=== PATIENT | female | born 1940 | race Caucasian/White ===

== ENCOUNTER 2017-09-18 12:54 | Emergency (ER) | payer MEDICARE ==
[~2017-09-18] VITALS: Ht 165.1 cm; Wt 62.1 kg
--- NOTE | 2017-09-18 13:14 | ER Report ---
History and Physical Time Seen By MD: 13:10 HPI/DOMINICK CHIEF COMPLAINT: Stroke symptoms HISTORY OF PRESENT ILLNESS: This is a 76-year-old female who presents to the emergency department for strokelike symptoms. Patient was sent from urgent care today due to her severe ataxia. Patient states that since July she has had intermittent episodes of "vertigo" with ataxia, no medications for her symptoms. But yesterday and today her ataxia became worse. She did go to urgent care for some meclizine when she was evaluated there she was promptly sent to the emergency department for further evaluation. Patient denies dizziness, nausea, vomiting, aches, chills, denies headaches, diarrhea. She also states her sleep has been off since coming back from [place] at the end of July , in addition to her ataxia. REVIEW OF SYSTEMS: Constitutional: No fever, no chills. Eyes: No discharge. ENT: No sore throat. Cardiovascular: No chest pain, no palpitations. Respiratory: No cough, no shortness of breath. Gastrointestinal: No abdominal pain, no vomiting. Genitourinary: No hematuria. Musculoskeletal: No back pain. Skin: No rashes. Neurological: As above. Allergies: Coded Allergies: No Known Drug Allergies (Unverified , 09/18/17) Home Meds Active Scripts Meclizine Hcl (MECLIZINE HCL) 25 Mg Tablet, 25 MG PO BID for 5 Days, #30 TAB Prov:TUCKER RAPP Fran [facility]- 09/18/17 Past Medical/Surgical History The patient has a past medical and surgical history of hysterectomy, vertigo. Reviewed Nurses Notes: Yes Constitutional Vital Sign - Last 24 Hours 09/18/17 09/18/17 09/18/17 09/18/17 13:09 13:09 13:10 13:24 Temp 97.7 Pulse 66 ??? 71 Resp 16 15 B/P (MAP) 194/95 194/95 (128) Pulse Ox 91 92 O2 Delivery Room Air 09/18/17 09/18/17 09/18/17 09/18/17 13:30 13:39 13:52 13:54 Pulse 71 ??? Resp 8 27 B/P (MAP) 190/105 (133) 190/78 (115) Pulse Ox 94 09/18/17 09/18/17 09/18/17 09/18/17 13:59 14:00 14:29 14:30 Pulse ??? 71 Resp 6 B/P (MAP) 178/90 (119) 157/87 (110) Pulse Ox 96 09/18/17 09/18/17 09/18/17 09/18/17 14:44 15:00 15:30 16:00 Pulse 71 Resp 18 B/P (MAP) ???/??? (1665) ???/??? (1665) ???/??? (1665) Pulse Ox 93 09/18/17 09/18/17 16:56 17:13 B/P (MAP) 167/104 (125) 186/91 (122) Physical Exam General Appearance: The patient is alert, has no immediate need for airway protection and no signs of toxicity. Eyes: Pupils equal and round no pallor or injection. EOMs intact. No nystagmus. ENT, Mouth: Mucous membranes are moist. Respiratory: There are no retractions, lungs are clear to auscultation. Cardiovascular: Regular rate and rhythm, no murmurs, clicks or rubs. Gastrointestinal: Abdomen is soft and non tender, no masses, bowel sounds normal. Neurological: Alert and oriented 4. Moving all extremities. Following all commands. No focal neuro deficits. Cranial nerves II through XII intact and equal. Moderate swaying to the right with Romberg exam. Negative nystagmus, negative vertical skew, negative head impulse. Ataxia with ambulation primarily to the right. Skin: Warm and dry, no rashes. Musculoskeletal: Neck is supple non tender. Extremities are nontender, nonswollen and have full range of motion. DIFFERENTIAL DIAGNOSIS: After history and physical exam differential diagnosis was considered for vertigo including but not limited to peripheral causes such as benign positional vertigo, Mnire's disease, viral labyrinthitis and central causes such as CVA, and tumor. NIH Stroke Scale: 0 Level of consciousness: Alert Answers both questions correctly Performs both tasks correctly Best Gaze:0 Normal Visual:0 No visual loss Facial Palsy:0 Normal, symmetrical movements Motor Left Arm:0 No drift for 10 seconds Motor Right Arm:0 No drift for 10 seconds Motor Left Le No drift for 5 seconds Motor Right Le No drift for 5 seconds Limb Ataxia:0 Absent Sensory: 0 Normal, no sensory loss Best Language:0 Normal, no aphasia Dysarthria:0 Normal Extinction and Inattention:0 No abnormality Medical Decision Making Data Points Result Diagram: 09/18/17 1402 09/18/17 1402 Laboratory Hematology Test 09/18/17 13:50 09/18/17 14:02 Urine Color Yellow Urine Clarity Clear Urine pH 5.0 pH (4.8-9.5) Urine Specific [place] 1.013 Urine Protein Negative mg/dL (NEGATIVE) Urine Glucose (UA) Negative mg/dL (NEGATIVE) Urine Ketones Negative mg/dL (NEGATIVE) Urine Blood Moderate (NEGATIVE) Urine Nitrite Positive (NEGATIVE) Urine Bilirubin Negative (NEGATIVE) Urine Urobilinogen Negative mg/dL (0.2-1.9) Urine Leukocyte Esterase Negative (NEGATIVE) Urine RBC 5 /HPF (0-2/HPF) Urine WBC 10 /HPF (0-5/HPF) Urine Squamous Epithelial Cells Many /LPF (</=FEW) Urine Bacteria Moderate /HPF (NONE-FEW) Urine Hyaline Casts Few /LPF (NONE-FEW) Urine Mucus None /HPF (NONE-FEW) Red Blood Count 5.34 M/uL (4.17-5.56) Mean Corpuscular Volume 88.8 fL (80.0-96.0) Mean Corpuscular Hemoglobin 30.6 pg (26.0-33.0) Mean Corpuscular Hemoglobin Concent 34.4 g/dL (32.0-36.0) Red Cell Distribution Width 12.9 % (11.5-14.5) Mean Platelet Volume 7.3 fL (7.2-11.1) Neutrophils (%) (Auto) 59.5 % (39.4-72.5) Lymphocytes (%) (Auto) 31.5 % (17.6-49.6) Monocytes (%) (Auto) 7.7 % (4.1-12.4) Eosinophils (%) (Auto) 0.6 % (0.4-6.7) Basophils (%) (Auto) 0.7 % (0.3-1.4) Nucleated RBC Relative Count (auto) 0.1 /100WBC Neutrophils # (Auto) 4.9 K/uL (2.0-7.4) Lymphocytes # (Auto) 2.6 K/uL (1.3-3.6) Monocytes # (Auto) 0.6 K/uL (0.3-1.0) Eosinophils # (Auto) 0.1 K/uL (0.0-0.5) Basophils # (Auto) 0.1 K/uL (0.0-0.1) Nucleated RBC Absolute Count (auto) 0.01 K/uL Prothrombin Time 12.7 seconds (12.0-14.4) Prothromb Time International Ratio 0.96 Activated Partial Thromboplast Time 27 seconds (23-35) Sodium Level 138 mmol/L (137-145) Potassium Level 4.4 mmol/L (3.5-5.0) Chloride Level 102 mmol/L (98-107) Carbon Dioxide Level 25 mmol/L (22-31) Blood Urea Nitrogen 19 mg/dl (7-18) Creatinine 0.70 mg/dl (0.52-1.04) Glomerular Filtration Rate Calc > 60.0 Random Glucose 91 mg/dl (75-110) Calcium Level 9.7 mg/dl (8.4-10.2) Total Bilirubin 0.6 mg/dl (0.2-1.3) Aspartate Amino Transf (AST/SGOT) 33 U/L (0-35) Alanine Aminotransferase (ALT/SGPT) 48 U/L (0-56) Alkaline Phosphatase 51 U/L (0-126) Troponin I < 0.012 ng/ml Total Protein 8.2 gm/dl (6.3-8.2) Albumin 4.4 g/dl (3.5-5.0) Chemistry Test 09/18/17 13:50 09/18/17 14:02 Urine Color Yellow Urine Clarity Clear Urine pH 5.0 pH (4.8-9.5) Urine Specific [place] 1.013 Urine Protein Negative mg/dL (NEGATIVE) Urine Glucose (UA) Negative mg/dL (NEGATIVE) Urine Ketones Negative mg/dL (NEGATIVE) Urine Blood Moderate (NEGATIVE) Urine Nitrite Positive (NEGATIVE) Urine Bilirubin Negative (NEGATIVE) Urine Urobilinogen Negative mg/dL (0.2-1.9) Urine Leukocyte Esterase Negative (NEGATIVE) Urine RBC 5 /HPF (0-2/HPF) Urine WBC 10 /HPF (0-5/HPF) Urine Squamous Epithelial Cells Many /LPF (</=FEW) Urine Bacteria Moderate /HPF (NONE-FEW) Urine Hyaline Casts Few /LPF (NONE-FEW) Urine Mucus None /HPF (NONE-FEW) White Blood Count 8.3 k/uL (4.5-11.0) Red Blood Count 5.34 M/uL (4.17-5.56) Hemoglobin 16.3 g/dL (12.0-16.0) Hematocrit 47.4 % (34.0-47.0) Mean Corpuscular Volume 88.8 fL (80.0-96.0) Mean Corpuscular Hemoglobin 30.6 pg (26.0-33.0) Mean Corpuscular Hemoglobin Concent 34.4 g/dL (32.0-36.0) Red Cell Distribution Width 12.9 % (11.5-14.5) Platelet Count 278 K/uL (150-450) Mean Platelet Volume 7.3 fL (7.2-11.1) Neutrophils (%) (Auto) 59.5 % (39.4-72.5) Lymphocytes (%) (Auto) 31.5 % (17.6-49.6) Monocytes (%) (Auto) 7.7 % (4.1-12.4) Eosinophils (%) (Auto) 0.6 % (0.4-6.7) Basophils (%) (Auto) 0.7 % (0.3-1.4) Nucleated RBC Relative Count (auto) 0.1 /100WBC Neutrophils # (Auto) 4.9 K/uL (2.0-7.4) Lymphocytes # (Auto) 2.6 K/uL (1.3-3.6) Monocytes # (Auto) 0.6 K/uL (0.3-1.0) Eosinophils # (Auto) 0.1 K/uL (0.0-0.5) Basophils # (Auto) 0.1 K/uL (0.0-0.1) Nucleated RBC Absolute Count (auto) 0.01 K/uL Prothrombin Time 12.7 seconds (12.0-14.4) Prothromb Time International Ratio 0.96 Activated Partial Thromboplast Time 27 seconds (23-35) Glomerular Filtration Rate Calc > 60.0 Calcium Level 9.7 mg/dl (8.4-10.2) Total Bilirubin 0.6 mg/dl (0.2-1.3) Aspartate Amino Transf (AST/SGOT) 33 U/L (0-35) Alanine Aminotransferase (ALT/SGPT) 48 U/L (0-56) Alkaline Phosphatase 51 U/L (0-126) Troponin I < 0.012 ng/ml Total Protein 8.2 gm/dl (6.3-8.2) Albumin 4.4 g/dl (3.5-5.0) Coagulation Test 09/18/17 14:02 Prothrombin Time 12.7 seconds Prothromb Time International Ratio 0.96 Activated Partial Thromboplast Time 27 seconds Urinalysis Test 09/18/17 13:50 Urine Color Yellow Urine Clarity Clear Urine pH 5.0 pH (4.8-9.5) Urine Specific [place] 1.013 Urine Protein Negative mg/dL (NEGATIVE) Urine Glucose (UA) Negative mg/dL (NEGATIVE) Urine Ketones Negative mg/dL (NEGATIVE) Urine Blood Moderate (NEGATIVE) Urine Nitrite Positive (NEGATIVE) Urine Bilirubin Negative (NEGATIVE) Urine Urobilinogen Negative mg/dL (0.2-1.9) Urine Leukocyte Esterase Negative (NEGATIVE) Urine RBC 5 /HPF (0-2/HPF) Urine WBC 10 /HPF (0-5/HPF) Urine Squamous Epithelial Cells Many /LPF (</=FEW) Urine Bacteria Moderate /HPF (NONE-FEW) Urine Hyaline Casts Few /LPF (NONE-FEW) Urine Mucus None /HPF (NONE-FEW) EKG/Imaging EKG Interpretation 12 lead EKG: Rhythm: Normal sinus rhythm, 66 bpm. [place]: normal QRS: normal ST segments: normal Imaging Exam type: CHEST PA AND LAT History: Stroke symptoms, vertigo, Comparison: None Findings: The lungs are free of acute effusions, infiltrates or edema. There is an increased AP diameter the chest which can be seen with COPD. The cardiac silhouette is normal in size. A small hiatal hernia. Mild spondylotic changes of the thoracic spine. IMPRESSION: 1. Mild hyperinflation lung ochoa although no evidence of acute pulmonary consolidation Small hiatal hernia Report Dictated By: Christelle Blecher MD at 09/18/2017 2:28 PM Report E-Signed By: Christelle Belcher MD at 09/18/2017 2:30 PM WSN:[email or web address] EXAMINATION: Head CT without intravenous contrast HISTORY: Stroke symptoms TECHNIQUE: Contiguous axial images were obtained from the skull base to the vertex without intravenous contrast. Sagittal and coronal reformatted images are also submitted. COMPARISON: None. FINDINGS: Brain volume: Normal. Ventricles: Normal. Acute ischemic changes: There are diffuse areas of decreased attenuation seen throughout the periventricular white matter. Decreased attenuation also noted in the suha and cerebral peduncles. There is no associated mass effect. Hemorrhage: None. Masses / edema: None. Roblero-white: Negative. White matter: As above Vessels: Negative. Extra-axial: Negative. Calvarium / scalp: Negative. Skull base / visualized face: Negative. Visualized sinuses / orbits: There is a large mucous retention cyst or other polypoid lesion in the left maxillary sinus IMPRESSION: There are diffuse areas of decreased attenuation throughout the periventricular white matter and decreased attenuation in the suha and cerebral peduncles. There is no associated mass effect. This could represent chronic change although there are no prior studies available for comparison. In light of the clinical history MR the brain is recommended for further evaluation Results were called to TUCKER RAPP at 09/18/2017 2:23 PM. Report Dictated By: Christelle Belcher MD at 09/18/2017 2:18 PM Report E-Signed By: Christelle Belcher MD at 09/18/2017 2:23 PM WSN:[email or web address] Examination: MR brain without and with contrast History: Evaluate for stroke, ataxia Comparison: Head CT same day Technique: Multiplane MR imaging was performed through the brain without and with contrast. 13 cc IV multihance was administered. Findings: Diffusion: None Ventricles: Normal Midline shift: None Extraxial fluid: None Midline craniocervical structures: Normal Parenchyma: Confluent periventricular and deep white matter high signal most pronounced in the right parietal region. A few scattered white matter high signal foci. Enhancement: No pathologic enhancement Vascular flow voids: Normal Orbits and paranasal sinuses: Cataract postsurgical change. Left maxillary sinus mucous retention cyst. Impression: 1. No acute finding. 2. Mild to moderate chronic small vessel ischemic change. 3. Otherwise normal brain MR without and with contrast. Report Dictated By: Maikol Gautam MD at 09/18/2017 4:49 PM Report E-Signed By: Maikol Gautam MD at 09/18/2017 4:53 PM WSN:[id number] EXAMINATION: Brain MR angiogram HISTORY: Ataxia COMPARISON: None. TECHNIQUE: [id number]-[id number]-flight angiography was performed through the brain with 3D reformations. FINDINGS: Internal carotids: Normal. Anterior/Posterior communicating arteries: Normal. Anterior cerebral arteries: Normal. Middle cerebral arteries: Normal. Posterior cerebral arteries: Normal. Vertebrobasilar: Normal. PICA / AICA / SCA / SUPPLY CHAIN TECHNICIAN: Normal. Non-angiographic Findings: None significant. IMPRESSION: Normal brain MR angiogram. Report Dictated By: Maikol Gautam MD at 09/18/2017 4:53 PM Report E-Signed By: Maikol Gautam MD at 09/18/2017 4:55 PM WSN:[id number] ED Course/Re-evaluation Clinical Indication for ER IV: IV Access ED Course The patient was admitted to room. History and physical were obtained. Differential diagnoses were considered. An IV was started. A CBC, CMP were unremarkable. UA is likely contaminated however did send for culture if positive patient will be called and treated with antibiotics. EKG showing sinus rhythm. No acute ST abnormalities. Chest x-ray showing mild hyperinflation no evidence of acute pulmonary consolidation. Head CT showing decreased attenuation in the suha, could represent chronic changes although unclear they did recommend an MRI. Negative MRI, negative MRA. I did review the results with the patient and her daughter. Her blood pressure did come down to 150's systolic and upper 80's diastolic, I elected not to treat her hypertension due to her ataxia and improving blood pressures. I did tell him I don't have a definitive explanation why she has ataxia, it could be vertigo however I did recommend that they follow with neurology. I also recommended that they follow up with Dr. Joshua to manage her healthcare as soon as possible. Patient was given 25 mg meclizine as well as a prescription for the next 5 days. The patient was also encouraged to return to the emergency department for any other concerns or worsening symptoms. The patient and her daughter had no other questions or concerns and were discharged home. Decision to Disposition Date: Sep 18, 2017 Decision to Disposition Time: 17:24 Depart Departure Latest Vital Signs Vital Signs Date Time Temp Pulse Resp B/P (MAP) Pulse Ox O2 Delivery O2 Flow Rate FiO2 09/18/17 17:13 186/91 (122) 09/18/17 14:44 71 18 93 09/18/17 13:09 97.7 Room Air Impression: Primary Impression: ATAXIA, UNSPECIFIED Condition: Improved Disposition: HOME OR SELF-CARE Referrals: ANUEL OROZCO MD,MARCELINO Gregory MD New Scripts Meclizine Hcl (MECLIZINE HCL) 25 Mg Tablet 25 MG PO BID for 5 Days, #30 TAB Prov: TUCKER RAPP 09/18/17 Patient Instructions: Vertigo (ED) Additional Instructions: You had a normal MRI today, showing no signs of a stroke. Drink plenty of fluids. Get plenty of rest. Consider a sleep study for possible obstructive sleep apnea. Please call the neurology clinic in [place] for a follow-up. Call Dr. Joshua's office next week to schedule an appointment. Try meclizine for the next 5 days to see if this will help with your unsteadiness. Please return to the ED for any other concerns or worsening symptoms. [facility]. [address] [place] [address], [facility] [phone] Hours Thursday - : 9am - 5pm [place]: 9am - Noon day: Closed Thursday: Closed MD Consult Note: TUCKER Onofre Sep 18, 2017 13:14
[2017-09-18 14:14] LABS: PLATELET COUNT, AUTOMATED 278 K/uL (150-450)
[2017-09-18 14:16] LABS: INR 0.96
--- NOTE | 2017-09-18 14:17 | EKG ---
FACILITY: [facility] [place] PATIENT NAME: NEEL KRAUS : [id number] MR: [id number] V: [id number] EXAM DATE: ORDERING PHYSICIAN: TUCKER RPAP TECHNOLOGIST: Test Reason : Blood Pressure : / mmHG Vent. Rate : 066 BPM Atrial Rate : 066 BPM P-R Int : 190 ms QRS Dur : 092 ms QT Int : 410 ms P-R-T Axes : 034 037 038 degrees QTc Int : 429 ms Normal sinus rhythm Normal ECG No previous ECGs available Confirmed by CHAVEZ GUERRA ([id number]) on 09/18/2017 6:56:39 PM Referred By: Confirmed By:CHAVEZ GUERRA
--- NOTE | 2017-09-18 14:32 | RADIOLOGY IMAGING REPORT ---
FACILITY: [facility] - [place] PATIENT NAME: Nithya Parker : 1940 MR: [id number] V: [id number] EXAM DATE: ORDERING PHYSICIAN: TUCKER RAPP TECHNOLOGIST: Location: [facility] [place] Patient: Nithya Parker : 1940 Visit/Account:[id number] Date of Sevice: 09/18/2017 EXAMINATION: Head CT without intravenous contrast HISTORY: Stroke symptoms TECHNIQUE: Contiguous axial images were obtained from the skull base to the vertex without intraven ous contrast. Sagittal and coronal reformatted images are also submitted. COMPARISON: None. FINDINGS: Brain volume: Normal. Ventricles: Normal. Acute ischemic changes: There are diffuse areas of decreased attenuation seen throughout the periven tricular white matter. Decreased attenuation also noted in the suha and cerebral peduncles. There i s no associated mass effect. Hemorrhage: None. Masses / edema: None. Roblero-white: Negative. White matter: As above Vessels: Negative. Extra-axial: Negative. Calvarium / scalp: Negative. Skull base / visualized face: Negative. Visualized sinuses / orbits: There is a large mucous retention cyst or other polypoid lesion in the left maxillary sinus IMPRESSION: There are diffuse areas of decreased attenuation throughout the periventricular white matter and decr eased attenuation in the suha and cerebral peduncles. There is no associated mass effect. This coul d represent chronic change although there are no prior studies available for comparison. In light of the clinical history MR the brain is recommended for further evaluation Results were called to TUCKER RAPP at 09/18/2017 2:23 PM. Report Dictated By: Christelle Belcher MD at 09/18/2017 2:18 PM Report E-Signed By: Christelle Belcher MD at 09/18/2017 2:23 PM WSN:[email or web address]
--- NOTE | 2017-09-18 14:36 | RADIOLOGY IMAGING REPORT ---
FACILITY: [facility] [place] PATIENT NAME: Nithya Parker : 1940 MR: [id number] V: [id number] EXAM DATE: ORDERING PHYSICIAN: TUCKER RAPP TECHNOLOGIST: Location: [facility] [place] Patient: Nithya Parker : 1940 Visit/Account:[id number] Date of Sevice: 09/18/2017 Exam type: CHEST PA AND LAT History: Stroke symptoms, vertigo, Comparison: None Findings: The lungs are free of acute effusions, infiltrates or edema. There is an increased AP diameter the c hest which can be seen with COPD. The cardiac silhouette is normal in size. A small hiatal hernia. Mild spondylotic changes of the thoracic spine. IMPRESSION: 1. Mild hyperinflation lung ochoa although no evidence of acute pulmonary consolidation Small hiatal hernia Report Dictated By: Christelle Belcher MD at 09/18/2017 2:28 PM Report E-Signed By: Christelle Belcher MD at 09/18/2017 2:30 PM WSN:[email or web address]
[2017-09-18] MEDS ORDERED: GADOBENATE 529MG/1ML 15ML VIAL IVP ONE (16:06)
--- NOTE | 2017-09-18 16:57 | RADIOLOGY IMAGING REPORT ---
FACILITY: [facility] - [place] PATIENT NAME: Nithya Parker : 1940 MR: [id number] V: [id number] EXAM DATE: ORDERING PHYSICIAN: TUCKER RAPP TECHNOLOGIST: Location: [facility] Patient: Nithya Parker : 1940 Visit/Account:[id number] Date of Sevice: 09/18/2017 Examination: MR brain without and with contrast History: Evaluate for stroke, ataxia Comparison: Head CT same day Technique: Multiplane MR imaging was performed through the brain without and with contrast. 13 cc IV multihance was administered. Findings: Diffusion: None Ventricles: Normal Midline shift: None Extraxial fluid: None Midline craniocervical structures: Normal Parenchyma: Confluent periventricular and deep white matter high signal most pronounced in the right parietal region. A few scattered white matter high signal foci. Enhancement: No pathologic enhancement Vascular flow voids: Normal Orbits and paranasal sinuses: Cataract postsurgical change. Left maxillary sinus mucous retention cys t. Impression: 1. No acute finding. 2. Mild to moderate chronic small vessel ischemic change. 3. Otherwise normal brain MR without and with contrast. Report Dictated By: Maikol Gautam MD at 09/18/2017 4:49 PM Report E-Signed By: Maikol Gautam MD at 09/18/2017 4:53 PM WSN:[id number]
--- NOTE | 2017-09-18 17:00 | RADIOLOGY IMAGING REPORT ---
FACILITY: [facility] - [place] PATIENT NAME: Nithya Parker : 1940 MR: [id number] V: [id number] EXAM DATE: ORDERING PHYSICIAN: TUCKER RAPP TECHNOLOGIST: Location: [facility] [place] Patient: Nithya Parker : 1940 Visit/Account:[id number] Date of Sevice: 09/18/2017 EXAMINATION: Brain MR angiogram HISTORY: Ataxia COMPARISON: None. TECHNIQUE: [id number]-flight angiography was performed through the brain with 3D reformations. FINDINGS: Internal carotids: Normal. Anterior/Posterior communicating arteries: Normal. Anterior cerebral arteries: Normal. Middle cerebral arteries: Normal. Posterior cerebral arteries: Normal. Vertebrobasilar: Normal. PICA / AICA / SCA / FOUR CORNER STAYER MACHINE OPERATOR: Normal. Non-angiographic Findings: None significant. IMPRESSION: Normal brain MR angiogram. Report Dictated By: Maikol Gautam MD at 09/18/2017 4:53 PM Report E-Signed By: Maikol Gautam MD at 09/18/2017 4:55 PM WSN:[id number]
[2017-09-18 17:13] VITALS: BP 186/91
[2017-09-18] MEDS ORDERED: MECLIZINE HCL 25 MG TAB PO ONE (17:25)
[2017-09-18] MEDS ORDERED: MECL25TA9 PO (17:33)
== END 2017-09-18 17:45 | disposition home or self-care (01) ==
LOC: ER 12:55
DX: R27.0 Ataxia, unspecified (principal); R42 Dizziness and giddiness; G47.9 Sleep disorder, unspecified
CPT/HCPCS: 70450; 70544; 70553; 71046; 81001; 84484; 85025; 85610; 85730; 87077; 87088; 87186; 93005; 99284; A9577; J8597; 82040; 82247; 82310; 82374; 82435; 82565; 82947; 84075; 84132; 84155; 84295; 84450; 84460; 84520

== ENCOUNTER → 2017-11-19 | Outpatient (CLI) | payer MEDICARE ==
[~2017-11-19] MED LIST: CA C1TAB11 PO; CHOLECALCIFEROL PO; CRANBERRY PO; CYA1000 PO; MECL25TA9 PO; MULT-19 PO; OMEG-36 PO; UBID1CAP94 PO
== END ==
LOC: AUD 10:30
PROVIDERS: ATTEND Otolaryngology
DX: H91.93 Unspecified hearing loss, bilateral (principal)
CPT/HCPCS: 92557; 92570

== ENCOUNTER 2017-11-26 14:30 | Outpatient (RCR) | payer MEDICARE ==
--- NOTE | 2017-10-13 16:28 | PT INITIAL EVALUATION ---
MEDICAL DIAGNOSIS: Imbalance TREATMENT DIAGNOSIS: same DATE OF ONSET: 08/06/17 SUBJECTIVE: Nithya Parker presents to physical therapy with complaints of being "off balance" that started approximately 2.5 months ago. She reports that she has a history of vertigo of four years, however, she feels like this bout is much different as she does not have any dizziness or spinning, however, she feels like she is "off balance." Due to feeling off balance, she has reduced her dog walks and attending water aerobics. Furthermore, she reports that she has had MRI's, CT scans, xrays, and blood work up to find the source of this "mystery" problem. She denies being lightheaded with transitioning from laying down to sitting up to standing up. She denies any pain. REHAB PROBLEM LIST: Decreased Strength Decreased Endurance Decreased Balance Decreased Function Decreased ADL's Decreased Mobility Decreased Gait PREVIOUS MEDICAL HISTORY: See EMR OCCUPATION: Retired OBJECTIVE: Posture: She demonstrated minimal forward head, B rounded shoulder, increased thoracic kyphosis, and decreased lumbar lordosis. ROM: Core, B LE's: hip flexion, extension, abduction, adduction, B knee extension and flexion, and B ankle PF and DF: WFL's. Strength: B LE's: B hip flexion, abduction, extension, B knee extension, and B ankle DF: 4/5. B knee flexion, B hip adduction, and B ankle PF: 5/5. Special Tests: Tested vestibular semicircular canals: anterior/posterior canals : negative. Horizontal canals: negative Mobility: Independent Gait: Dynamic gait index: : she demonstrated difficulties with gait speed, changes in gait speed, difficulty with head turns during gait, difficulties stepping over/around obstacles, and going up and down stairs. Furthermore, she continues to veer to the R side Balance: Firm surface, normal base of support, eyes opened: 60 seconds. Firm surface, normal base of support, eyes closed: 30 seconds. Firm surface, decreased base of support, eyes opened: 60 seconds. Firm surface, decreased base of support, eyes closed: 15 seconds. Compliant surface, normal base of support, eyes opened: 30 seconds. Compliant surface, normal base of support, eyes closed: 5 seconds. Compliant surface, decreased base of support, eyes opened: 15 seconds. Compliant surface, decreased base of support, eyes closed: 2 seconds. ASSESSMENT: Nithya will benefit from skilled physical therapy addressing the listed impairments to improve function and QOL. Short Term Goals 3 weeks: Pt will be able to engage vestibular system and demonstrate improved balance strategies from baseline to 30 seconds or greater to improve function and QOL. 6 weeks: Pt will be able to engage vestibular system and demonstrate improved balance strategies from baseline to 60 seconds or greater to improve function and QOL. 8 weeks: Pt will demonstrate an improvement within the dynamic gait index from baseline to 21/24 or greater to improve function and QOL. Patient's Goals improve this feeling of being off balance PLAN: Patient to be seen for Strengthening/condition Spinal Stabilization Work Hardening/Cond Stretching Neuromuscular Re-ed Closed Chain Program Posture/Body mechanics Gait Trg/Balance Trg Home Exercise Program Therapeutic Activities 2x/Week for 2 Months If you have any questions, comments, or concerns about this report or plan, please contact me at . Thank you, Corey White, PT, DPT [facility]
--- NOTE | 2017-11-27 11:29 | PT PLAN OF CARE ---
Physician: Kaci Joshua MD Patient is being seen: 1-2x/week Therapist: Corey White, PT, DPT Medical Diagnosis: Imbalance Treatment Diagnosis: same Date of Onset: 08/06/17 Date of Initial Evaluation: 10/12/17 Date patient was last seen: 11/26/17 Number of treatments: 8 Number of cancellations/No shows: 0 INTERVENTIONS: Strengthening/condition Spinal Stabilization Work Hardening/Cond Stretching Neuromuscular Re-ed Closed Chain Program Posture/Body mechanics Gait Trg/Balance Trg Home Exercise Program Therapeutic Activities GOALS: 3 weeks: Pt will be able to engage vestibular system and demonstrate improved balance strategies from baseline to 30 seconds or greater to improve function and QOL. MET 6 weeks: Pt will be able to engage vestibular system and demonstrate improved balance strategies from baseline to 60 seconds or greater to improve function and QOL. MET 8 weeks: Pt will demonstrate an improvement within the dynamic gait index from baseline to 21/24 or greater to improve function and QOL. MET PATIENT'S GOAL: improve this feeling of being off balance: MET Status of Patient's Goals: MET Patient Compliance: Excellent Prognosis: Good Reasons for continuing therapy: This is a discharge note for Nithya Parker. She reports that she is doing well. She states that she feels like her walking and balance are back to normal. She reports that she feels comfortable with her home exercise program. She has progressed well with balance strategies along with abolished tremor like movements during gait and balance. Furthermore, she has demonstrated a return in function with gait and balance. She is independent in her HEP. She has met all of her goals. As a result, she will be discharged from PT. Posture: She demonstrated minimal forward head, B rounded shoulder, increased thoracic kyphosis, and decreased lumbar lordosis. ROM: Core, B LE's: hip flexion, extension, abduction, adduction, B knee extension and flexion, and B ankle PF and DF: WFL's. Strength: B LE's: B hip flexion, abduction, extension, B knee extension, and B ankle DF: 4/5. B knee flexion, B hip adduction, and B ankle PF: 5/5. Special Tests: Tested vestibular semicircular canals: anterior/posterior canals : negative. Horizontal canals: negative Mobility: Independent If you have any questions, please contact me at [phone]. Thank you, Corey White, PT, DPT [facility]
== END 2017-11-26 18:00 | disposition home or self-care (01) ==
LOC: PT 14:30
PROVIDERS: ATTEND Family Medicine
DX: R26.89 Other abnormalities of gait and mobility (principal)
CPT/HCPCS: 97162

== ENCOUNTER → 2018-02-11 | Outpatient (CLI) | payer MEDICARE ==
[~2018-02-11] MED LIST changes: +LISI5TAB25 PO
== END ==
LOC: LAB 14:09
PROVIDERS: ATTEND Family Medicine
DX: I10 Essential (primary) hypertension (principal)
CPT/HCPCS: 36415; 82310; 82374; 82435; 82565; 82947; 84132; 84295; 84520

== ENCOUNTER → 2018-07-16 | Outpatient (CLI) | payer MEDICARE ==
[~2018-07-16] MED LIST changes: +CALC1TAB24 PO; +DIPH-618 PO; +NAPR220C12 PO
--- NOTE | 2018-07-16 16:23 | RADIOLOGY IMAGING REPORT ---
FACILITY: [facility] - [place] PATIENT NAME: Nithay Parker : 1940 MR: [id number] V: [id number] EXAM DATE: ORDERING PHYSICIAN: MARCELINO CHOI TECHNOLOGIST: Location: [facility] - [place] Patient: Nithya Parker : 1940 Visit/Account:[id number] Date of Sevice: 07/16/2018 BONE MINERAL DENSITY HISTORY: screening DEXA Scan Clinical history: Osteopenia. Comparison: None available. LUMBAR SPINE: The bone mineral density (BMD) measured from L1-L4 correlates with a Z-score -0.6 and a T-score of -2 .6 which is osteoporosis as defined by the World Health Organization. The corresponding risk of frac ture in the lumbar spine is increased over 6 times compared with a young adult reference population. HIP: Bone mineral density (BMD) measured in the Left total hip region correlates with a Z-score -0.7 and a T-score of -2.8 which is osteoporosis as defined by the World Health Organization. The correspondin g risk of fracture in the hip is increased 7 times compared with a young adult reference population. Bone mineral density (BMD) measured in the Femoral Neck region measures 0.653 g/cm2. T score -2.8. Osteoporosis. Fracture risk increased 7 times. Impression: 1. Lumbar spine: Osteoporosis 2. Left Total Hip: Osteoporosis 3. Femoral Neck: Bone Mineral Density is 0.653 g/cm2. Osteoporosis. The next DEXA scan of this patient should include the following sites: L1-L4 and the left hip. FRAX? WHO Fracture Risk Assessment Tool link: <http://www.shef.ac.uk/FRAX/tool.jsp?locationValue=9> PLEASE NOTE: 1) The World Health Organization defines low BMD as follows: T-score Normal > -1 Osteopenia < -1 and > -2.5 Osteoporosis < -2.5 without fractures Established osteoporosis < -2.5 with fractures 2) In general, you may wish to consider: Diagnosis Treatment Follow-up DEXA Normal BMD Prevention 2-3 years Osteopenia Prevention/therapy 1-2 years Osteoporosis Therapy Yearly 3) Fracture risk estimated from the T-score is more accurate for vertebral fractures (often spontane ous) than for hip fractures. Report Dictated By: Stephen Whitman MD at 07/16/2018 4:11 PM Report E-Signed By: Stephen Whitman MD at 07/16/2018 4:19 PM WSN:IRVING
--- NOTE | 2018-07-19 16:10 | RADIOLOGY IMAGING REPORT ---
FACILITY: [facility] PATIENT NAME: NEEL KRAUS : [id number] MR: [id number] V: [id number] EXAM DATE: ORDERING PHYSICIAN: MARCELINO CHOI TECHNOLOGIST: Abena Barnett PROCEDURE:BILATERAL DIGITAL SCREENING MAMMOGRAM WITH CAD ASSISTED INTERPRETATION COMPARISON:Prior mammograms 03/12/2016, 07/21/2011. INDICATIONS:screening. FINDINGS: Conventional 2D cc and MLO views obtained. Tomosynthesis images unable to be obtained secondary to motion artifact. There is scattered fibroglandular tissue. A few scattered unchanged benign breast microcalcifications noted. No suspicious mass, microcalcification or architectural distortion. No change compared to priors. DIAGNOSTIC CATEGORY 1--NEGATIVE. RECOMMENDATIONS: ROUTINE MAMMOGRAM AND CLINICAL EVALUATION. IMPRESSION: BIRADS 1: Negative. Dictated by: Maikol Gautam on 07/19/2018 at 9:16 Transcribed by: TING on 07/19/2018 at 9:55 Approved by: Maikol Gautam on 07/19/2018 at 16:09 [facility]
== END ==
LOC: MAMO 01:28
PROVIDERS: ATTEND Family Medicine
DX: Z13.820 Encounter for screening for osteoporosis (principal); Z12.31 Encounter for screening mammogram for malignant neoplasm of breast; Z78.0 Asymptomatic menopausal state; M81.0 Age-related osteoporosis without current pathological fracture
CPT/HCPCS: 77063; 77067; 77080